=== PATIENT | male | born 1995 | race Caucasian/White ===

== ENCOUNTER 2020-07-08 13:32 | Emergency (ER) | payer OTHER ==
--- NOTE | 2020-07-08 13:40 | EDM.PDOC ---
ED HPI GENERAL MEDICAL PROBLEM - General Chief Complaint: Laceration Stated Complaint: LACERATION RIGHT HAND Time Seen by Provider: 07/08/20 13:37 Source of Information: Reports: Patient History Limitations: Reports: No Limitations - History of Present Illness INITIAL COMMENTS - FREE TEXT/NARRATIVE: HISTORY AND PHYSICAL: History of present illness: Patient is a 25-year-old male who presents emergency room today with concern of a right hand pinky finger laceration that occurred just prior to arrival to the emergency room. Patient states he works at a [employer] and they were cutting up ham for the holidays. Patient states he was running the ham through a sawblade where the bone was and the hand slipped on the bone and he caught his finger on the edge of the sawblade. Patient states that he applied pressure to the area and wrapped it up using a garbage sack at work and came to the emergency room for further evaluation. Patient states that he is not up-to-date on his tetanus and would like to update this today. Patient denies fever, chills, chest pain, shortness of breath, or cough. Denies headache, neck stiff ness, change in vision, syncope, or near syncope. Denies nausea, vomiting, abdominal pain, diarrhea, constipation, or dysuria. Has not noted any blood in urine or stool. Patient has been eating and drinking appropriately. Review of systems: As per history of present illness and below otherwise all systems reviewed and negative. Past medical history: As per history of present illness and as reviewed below otherwise noncontributory. Surgical history: As per history of present illness and as reviewed below otherwise noncontributory. Social history: See social history for further information Family history: As per history of present illness and as reviewed below otherwise noncontributory. Physical exam: General: Patient is alert, oriented, and in no acute distress. Patient sitting comfortably on exam table. Vital stable and reviewed by me HEENT: Atraumatic, normocephalic, pupils equal and reactive bilaterally, negative for conjunctival pallor or scleral icterus, mucous membranes moist, TMs normal bilaterally, throat clear, neck supple, nontender, trachea midline. No drooling or trismus noted. No meningeal signs. No hot potato voice noted. Lungs: Clear to auscultation, breath sounds equal bilaterally, chest nontender. Heart: S1S2, regular rate and rhythm without overt murmur Abdomen: Soft, nondistended, nontender. Negative for masses or hepatosplenomegaly. Negative for costovertebral tenderness. Pelvis: Stable nontender. Genitourinary: Deferred. Rectal: Deferred. Skin: Intact, warm, dry. No lesions or rashes noted. Extremities: There is a 3cm subcutaneous semi-circular laceration of the distal palmar aspect of the right hand pinky finger, I am unable to visualize bone, neurovascular intact, no tendon injury. The laceration does wrap around to just above the distal nail but does not involve the nail/nail bed. Does have full range of motion of the pinky finger without deficit. Patient has full range of motion of remaining digits of the right upper extremity and wrist. Radial pulses grossly intact of the right upper extremity with capillary refill less than 2 seconds. Otherwise, atraumatic, negative for cords or calf pain. Neurovascular unremarkable. Neuro: Awake, alert, oriented. Cranial nerves II through XII unremarkable. Cerebellum unremarkable. Motor and sensory unremarkable throughout. Exam nonfocal. Notes: I did call and speak to the orthopedic provider talent acquisition specialist, Dr. Floyd, thoroughly discussed patient's case. He would like to see patient in the clinic for evaluation in 1 week, on Tuesday. Discussed importance for follow-up with Dr. Floyd Symptoms that would prompt return to the ED thoroughly discussed with patient. Discussed importance for follow-up with a primary care provider. Voices understanding and is agreeable to plan of care. Denies any further questions or concerns at this time. Diagnostics: Hand XR Therapeutics: Tdap, Lidocaine, Bupivacaine, Sutures, Sterile dressing placed by nursing staff, splint with DIP joint in extension (past the tip of the distal phalanx), right hand 5th digit--> to keep on until orthopedic evaluation for fracture stabilization Prescription: Keflex Impression: Open tuft fracture, right, 5th digit Finger laceration, right, 5th digit Plan: 1. Keep the area clean and dry. Continue to monitor for signs of infection as discussed. Sutures to be removed in 7-10 days. 2. Tylenol and/or ibuprofen as directed and as needed for pain management and discomfort. Keep splint on until orthopedic evaluation. 3. Please follow-up with the orthopedic provider, Dr. Floyd, as discussed. Return to the ED as needed and as discussed. Take medication as prescribed. Definitive disposition and diagnosis as appropriate pending reevaluation and review of above. R pinky Pain Score (Numeric/FACES): 9 - Related Data Allergies Allergy/AdvReac Type Severity Reaction Status Date / Time amoxicillin Allergy Hives Verified 07/08/20 13:37 Home Meds: Home Meds . [No Known Home Meds] 07/08/20 [History] ED ROS GENERAL - Review of Systems Review Of Systems: Comprehensive ROS is negative, except as noted in HPI. ED EXAM, SKIN/RASH Exam: See Below (See dictation) ED SKIN PROCEDURES - Laceration/Wound Repair Right Distal Digit - 5th (Baby) Appearance: Subcutaneous, Linear, Clean Distal NVT: Neuro & Vascular Intact, No Tendon Injury Local Anesthesia - Lidocaine (Xylocaine): 1% Plain Local Anesthesia - Bupivicaine (Marcaine): 0.5% Plain Local Anesthetic Volume: Other (8) Skin Prep: Chlorhexidine (Hibiciens), Providone-Iodine (Betadine), Saline Saline Irrigation (cc's): 300 Exploration/Debridement/Repair: Wound Explored, In a Bloodless Field, Explored to Base, No Foreign Material Found Closed with: Sutures Lac/Wound length In cm: 3 Suture Size: 4-0 # of Sutures: 8 Suture Type: Silk, Interrupted Drain Placement: No Sterile Dressing Applied: Nurse Tetanus Status Addressed: Yes Complications: No Course - Vital Signs Last Recorded V/S: Last Vital Signs Temp 96.9 F 07/08/20 13:37 Pulse 73 07/08/20 13:37 Resp 18 07/08/20 13:37 BP 112/81 07/08/20 13:37 Pulse Ox 94 L 07/08/20 13:37 - Orders/Labs/Meds Orders: Active Orders 24 hr Category Date Time Status Vaccines to be Administered [RC] PER UNIT ROUTINE Care 07/08/20 13:51 Active DME for Discharge [COMM] Stat Oth 07/08/20 14:51 Ordered Meds: Medications Discontinued Medications Generic Name Dose Route Start Last Admin Trade Name Freq PRN Reason Stop Dose Admin Bupivacaine HCl 10 ml 07/08/20 13:51 07/08/20 14:01 Sensorcaine-Mpf 0.5% INJECT 07/08/20 13:52 10 ml ONETIME ONE Administration Diphtheria/Tetanus/Acell Pertussis 0.5 ml 07/08/20 13:51 07/08/20 14:00 Boostrix IM 07/08/20 13:52 0.5 ml .ONCE ONE Administration Lidocaine HCl 5 ml 07/08/20 13:51 07/08/20 14:01 Xylocaine-Mpf 1% INJECT 07/08/20 13:52 5 ml ONETIME ONE Administration Departure - Departure Time of Disposition: 14:55 Disposition: Home, Self-Care 01 Clinical Impression: Open fracture of tuft of distal phalanx of finger Finger laceration Qualifiers: Encounter type: initial encounter Finger: little finger Damage to nail status: without damage Foreign body presence: without foreign body Laterality: right Qualified Code(s): S61.216A - Laceration without foreign body of right little finger without damage to nail, initial encounter - Discharge Information Forms: ED Department Discharge Additional Instructions: The following information is given to patients seen in the emergency department who are being discharged to home. This information is to outline your options for follow-up care. We provide all patients seen in our emergency department with a follow-up referral. The need for follow-up, as well as the timing and circumstances, are variable depending upon the specifics of your emergency department visit. If you don't have a primary care physician on staff, we will provide you with a referral. We always advise you to contact your personal physician following an emergency department visit to inform them of the circumstance of the visit and for follow-up with them and/or the need for any referrals to a consulting specialist. The emergency department will also refer you to a specialist when appropriate. This referral assures that you have the opportunity for follow-up care with a specialist. All of these measure are taken in an effort to provide you with optimal care, which includes your follow-up. Under all circumstances we always encourage you to contact your private physician who remains a resource for coordinating your care. When calling for follow-up care, please make the office aware that this follow-up is from your recent emergency room visit. If for any reason you are refused follow-up, please contact the [facility] Emergency Department at and asked to speak to the emergency department charge nurse. [facility] [address] [place] [id number] [facility] [address] [place] [id number] [facility] Specialty [facility] - Orthopedic Clinic. Dr. Floyd [facility] [address] [facility], [address] [place] [address] 1. Keep the area clean and dry. Continue to monitor for signs of infection as discussed. Sutures to be removed in 7-10 days. 2. Tylenol and/or ibuprofen as directed and as needed for pain management and discomfort. Keep splint on until orthopedic evaluation. 3. Please follow-up with the orthopedic provider, Dr. Floyd, as discussed. Return to the ED as needed and as discussed. Take medication as prescribed. Sepsis Event Note (ED) - Focused Exam Vital Signs: Vital Signs Temp Pulse Resp BP Pulse Ox 07/08/20 13:37 96.9 F 73 18 112/81 94 L - My Orders Last 24 Hours: My Active Orders 07/08/20 13:51 Vaccines to be Administered [RC] PER UNIT ROUTINE 07/08/20 14:51 DME for Discharge [COMM] Stat - Assessment/Plan Last 24 Hours: My Active Orders 07/08/20 13:51 Vaccines to be Administered [RC] PER UNIT ROUTINE 07/08/20 14:51 DME for Discharge [COMM] Stat
[2020-07-08] MEDS ORDERED: Diphtheria,Pertussis(Acell),Tetanus Vaccine 0.5 ML Syringe IM ONE (13:51)
[2020-07-08] MEDS ORDERED: Bupivacaine 0.5% 10 ML SDV INJECT ONE (13:51)
--- NOTE | 2020-07-08 14:40 | CR ---
INDICATION: Trauma. Pain. TECHNIQUE: Three views of the right hand. FINDINGS: Non distracted fracture deformity distal aspect distal most phalanx right 5th finger. Soft tissue defect likely related to a laceration. No radiodense foreign body. Examination is otherwise negative. IMPRESSION : Laceration distal tip right 5th finger. Nondisplaced fracture distal phalangeal tip. Dictated by Drew Lezama MD @ Jul 08 2020 2:37PM Signed by Dr. Drew Lezama @ Jul 08 2020 2:38PM
== END 2020-07-08 15:23 | disposition home or self-care (01) ==
LOC: MW.ED 13:32
DX: S62.666B Nondisplaced fracture of distal phalanx of right little finger, initial encounter for open fracture (principal); Z88.1 Allergy status to other antibiotic agents; W23.0XXA Caught, crushed, jammed, or pinched between moving objects, initial encounter
CPT/HCPCS: 12002; 73130; 90471; 99283; J2001; J3490